=== PATIENT | male | born 1965 | race African-American/Black ===

== ENCOUNTER 2016-08-29 15:41 | Inpatient (IN) | payer MEDICARE, OTHER ==
--- NOTE | ~2016-08-29 | HP ---
History And Physical [place] [address] [facility] [place]. [address] NAME: YOU CROCKER : 63 STATUS : ADM IN PAT#: [id number] AGE: 50 ADM/REG DATE : 08/29/16 MR#: [id number] REPORT SERV DATE: 08/29/16 DICTATED BY: KATHIE LUGO DATE: 08/29/16 REPORT STATUS : Draft TRANSCRIBED BY: MODJeancarlos DATE: 08/29/16 DATE OF ADMISSION: 08/29/2016 REASON FOR ADMISSION: Acute kidney injury. CHIEF COMPLAINT: He had some abnormal labs and was told to come to the ER. HISTORY OF PRESENT ILLNESS: A 50-year-old male with a history of mental retardation, bipolar disorder, fragile X syndrome, is a resident of [facility]. He went in for routine lab work to his primary care office, Ms. Ginette Kruger, and lab work came back today as having an elevated creatinine. He was told to come to the ER for further evaluation. The patient is unable to provide history given his moderate mental retardation. He is able to follow some commands and speaks very simple sentences. He is accompanied by a sitter at [facility], who says that he has not had any significant behavioral changes other than just a one time episode of urinating in the van, which is unusual for him. They have been trying to encourage him to take more fluid, as they felt that he was getting a little bit dehydrated given the wrinkles on his fingertips, but otherwise, the sitter did not note any significant decrease in his p.o. intake. He has not had any significant medication changes other than just the addition of griseofulvin for a rash on his body. The patient's sitter says that he has had no issues with kidney issues in the past. Otherwise, if the patient has a problem, he usually points to an area of his body where he is hurting. He is able to ambulate and eat on his own. Again, the sitter has not noted any behavioral or anything abnormal from his routine behavior. REVIEW OF SYSTEMS: No fever, chills, nausea, vomiting, diarrhea, chest pain, or shortness of breath. PAST MEDICAL HISTORY: Mental retardation from fragile X syndrome, bipolar disorder, reflux with esophagitis diagnosed by Dr. Irving in 2013, hypertension, chronic constipation, chronic thrombocytopenia, history of right septic elbow joint. PAST SURGICAL HISTORY: Right elbow surgery. ALLERGIES: THORAZINE. SOCIAL HISTORY: Lives at [facility]. Family in [place], [place]. No tobacco, alcohol, or drug abuse. He has a conservator, who is Hawa Cyr, who is a revenue accountant. FAMILY HISTORY: Brother with mental retardation. MEDICATIONS: Include Caltrate 600 mg twice a day, vitamin D 800 units every morning, Dexilant 30 mg every morning, Depakote ER 1000 mg at bedtime, Colace 100 mg three times a day, Anamika, fluphenazine 10 mg twice a day, Flonase, griseofulvin, ketoconazole, mineral oil, MiraLAX, propranolol 10 mg three times a day, Metamucil, Seroquel 200 mg at bedtime and 400 mg twice a day, trazodone 100 mg at bedtime, Lamisil, olive oil lotion, aloe, Mucinex. History And Physical [address] [address] NAME: YOU CROCKER : 63 STATUS : ADM IN [facility]#: [id number] AGE: 50 ADM/REG DATE : 08/29/16 MR#: [id number] REPORT SERV DATE: 08/29/16 DICTATED BY: KATHIE LUGO DATE: 08/29/16 REPORT STATUS : Draft TRANSCRIBED BY: TREVOR DATE: 08/29/16 PHYSICAL EXAMINATION: VITAL SIGNS: Blood pressure is 141/97, temperature is afebrile, pulse is 56, respirations 16. GENERAL: He is in no acute distress. Alert and oriented. He is able to follow simple commands. He is pleasant. No behavioral changes. HEENT: Normocephalic and atraumatic head. Extraocular muscles intact. Oropharynx clear. NECK: Supple. No JVD. CARDIAC: Regular rhythm. No murmurs, rubs, or gallops. PULMONARY: Clear to auscultation bilaterally. ABDOMEN: Soft, nontender. Positive bowel sounds, obese. EXTREMITIES: Show no clubbing, cyanosis, or edema. NEUROLOGIC: No focal deficits. SKIN: Warm and dry. PSYCHIATRIC: The patient is cooperative. Mood is appropriate. LABORATORY DATA: Show a white blood cell count of 6.2, hemoglobin 12.3, platelet count of 131, BUN 33, creatinine 3, calcium 12.2, albumin 3. UA is unremarkable. IMPRESSION: 1. Acute kidney injury. 2. Hypercalcemia. 3. Bipolar. 4. Mental retardation. 5. Chronic thrombocytopenia. 6. Fragile X syndrome. PLAN: Plan is to do IV fluids. Obtain a complete abdominal ultrasound study looking at the kidneys, bladder, liver, and spleen. Obtain an intact parathyroid hormone, a phosphate level, vitamin D levels, SPEP, and UPEP for concern for possible multiple myeloma. We will hold off on a Reeves unless we show demonstration of obstruction, as he has tendency to have some behavioral changes with Reeves catheters and IVs. We will also check a Depakote level, check an ionized calcium level, hopefully get the patient back to [facility] in two days if his creatinine levels improve. FLACA/TREVOR Kathie Lugo MD / [id number] CC: MD GINETTE Pitts
--- NOTE | ~2016-08-29 | DS ---
Discharge Summary [place] [address] [place]. [address] NAME: YOU CROCKER : 63 STATUS : DIS IN PAT#: [id number] AGE: 50 ADM/REG DATE : 08/29/16 MR#: [id number] REPORT SERV DATE: 09/07/16 DICTATED BY: NERY LARA DATE: 09/06/16 REPORT STATUS : Draft TRANSCRIBED BY: MODJeancarlos DATE: 09/06/16 ADMISSION DATE: 08/29/2016 DISCHARGE DATE: 09/06/2016 DIAGNOSES: 1. Acute kidney injury. 2. Hypercalcemia. 3. History of fragile X syndrome. 4. Pulmonary nodule. CONSULTANTS: Nephrology with Dr. Brannon. FOLLOWUP: The patient should follow up with Nephrology in two to three weeks for creatinine and calcium level and also follow up with Pulmonary with Dr. in two to three weeks for pulmonary nodule and follow with the primary care physician in one week for repeat calcium level. HOSPITALIST: Dr. Louis Lugo and Dr. Lara. CONSULTANTS: Nephrology, Dr. Brannon. IMAGING: CT of the chest, abdomen, and pelvis without contrast with mild interstitial edema and cardiomegaly with bilateral upper lobe 0.6 cm pulmonary nodules one in each upper lobe and 0.4 cm lingular and lateral right lower lobe pulmonary nodules. One year follow up chest CT recommended with mild mediastinal adenopathy. No evidence of intraabdominal or pelvic malignancy on a noncontrast CT. There is a small fat containing umbilical and right inguinal hernia. Asymmetric sclerosis of the left upper sacrum and SI joints suggesting mild sacroiliitis. HOSPITAL COURSE: Please see H and P dictated by Dr. Lugo and interim summary from Dr. Lugo. This is a 50 years old male with a past medical history of fragile X syndrome and history of chronic thrombocytopenia, currently resides at [facility] with daily sitters and has a conservator, . Hawa Cyr. The patient was admitted for acute kidney injury with lab work by his primary care, Ginette Kruger. [facility] also felt the patient was getting more dehydrated while at home. He was admitted to the Hospitalist Service, found to have a BUN and creatinine of 33 and 3 respectively as well as hypercalcemia with a calcium of 12.2. He was initiated on IV fluids with a Nephrology consultation. PTH, vitamin D, SPEP and UPEP also was ordered. The patient had within normal limits PTH as well as vitamin D levels. His SPEP and UPEP were unremarkable. He was continued on IV fluids with improvement of his hypercalcemia. Still had a mild elevation of the ionized calcium at the time of discharge, but approved for discharge by Nephrology to follow up as an outpatient. The patient was on calcium supplements as an outpatient which were discontinued on discharge and should not be restarted. However, the patient did have incidental finding of some bilateral pulmonary nodules, suspected could be possible malignancy or associated cause of his hypercalcemia. Therefore, the patient was referred for an outpatient followup with a sales representative facility services and may require bronchoscopy, this has been updated and informed with his conservator, Ms. Shaikh Discharge Summary [address] [address] NAME: YOU CROCKER : 63 STATUS : DIS IN PAT#: [id number] AGE: 50 ADM/REG DATE : 08/29/16 MR#: [id number] REPORT SERV DATE: 09/07/16 DICTATED BY: NERY LARA DATE: 09/06/16 REPORT STATUS : Draft TRANSCRIBED BY: TREVOR DATE: 09/06/16 Klarissa, of the importance of pulmonary nodules being followed by sales representative facility services in case of association with the hypercalcemia. The patient was approved for discharge back to [facility] with followup by Nephrology and clinically and hemodynamically stable. His BUN and creatinine at the time of discharge was 22 and 1.97 with ionized calcium at 5 but approved for discharge by Nephrology. [facility]/MODL Nery Lara M.D. / [id number] CC: Jacey Delacruz M.D. Stuart G Ginther, M.D.
--- NOTE | ~2016-08-29 | IDS ---
Interim Discharge Summary [facility] [address] [place]. [address] NAME: YOU CROCKER : 63 STATUS : ADM IN PAT#: [id number] AGE: 50 ADM/REG DATE : 08/29/16 MR#: [id number] REPORT SERV DATE: 09/03/16 DICTATED BY: KATHIE LUGO DATE: 09/03/16 REPORT STATUS : Draft TRANSCRIBED BY: MODL DATE: 09/03/16 ADMISSION DATE: 08/29/2016 DISCHARGE DATE: REASON FOR ADMISSION: Acute kidney injury. HISTORY OF PRESENT ILLNESS: Please refer to my H and P dated 08/29/2016 for complete details on the patient's admission. In brief, the patient was told by his PCP to present to the ER because of his acute kidney injury. HOSPITAL COURSE: Several issues were addressed. 1. SINAN: The patient has a known creatinine level of 1 dated on 06/22/2016, from routine blood work. He presented to the hospital with a creatinine of around 3. He was started on IV fluids. UA was unremarkable. On the second day of admission, his creatinine had trended down, but on the 3rd day, it did not improve as anticipated and Nephrology was consulted to help. His creatinine to date is now 2.26, still not at his baseline. Complete abdominal ultrasound on 08/30/2016, showed gallbladder polyps and limited visualization of the pancreas, possibly increased echogenicity of the right parenchyma, which could indicate diffuse renal disease. Nephrology feels that his SINAN is secondary to hypercalcemia causing diabetes insipidus. Nephrology continues to follow along the patient, is involved with his care. 2. Hypercalcemia: The patient presented with a calcium level of around 12, was unknown if this was hypercalcemia malignancy. PTH was ordered, which was slightly on the low side. His vitamin D levels were normal but on the low end of normal. UPEP and SPEP were unremarkable. Nephrology recommended getting a surveillance CT scan of the chest, abdomen, and pelvis. Unfortunately, could not do IV contrast given his creatinine. The CT scan of his chest had revealed some bilateral upper lobe pulmonary nodules, RADS category 2. Recommended one year followup along with some mild mediastinal adenopathy. Unclear if the patient has hypercalcemia malignancy, but there is no obvious cancer etiology. Nephrology feels that his hypercalcemia could be due to his supplementation including Caltrate plus vitamin D, along with additional vitamin D. His Caltrate and vitamin D have been held since admission, and we have been watching his ionized calcium, which seems stable at about 5.2. 3. Mental retardation: This has been stable. The patient follows most commands. He does not demonstrate any behavioral changes. 4. Fragile X syndrome. 5. Bipolar disorder. He has been stable on his medications from [facility]. DISPOSITION: Pending final recommendations from Nephrology but anticipate discharging back to [facility] once Nephrology signs off. Further care per Dr. Trevino's who will assume care of this patient on 09/04/2016. FLACA/TREVOR Interim Discharge Summary [address] [place]. [address] NAME: YOU CROCKER : 63 STATUS : ADM IN [facility]#: [id number] AGE: 50 ADM/REG DATE : 08/29/16 MR#: [id number] REPORT SERV DATE: 09/03/16 DICTATED BY: KATHIE LUGO DATE: 09/03/16 REPORT STATUS : Draft TRANSCRIBED BY: TREVOR DATE: 09/03/16 Kathie Lugo MD / [id number] CC: MD MAYNOR Pitts TINA
--- NOTE | ~2016-08-29 | CN ---
Consultation Report [facility] [address] [place]. [address] NAME: YOU WALTERS : 63 STATUS : ADM IN [facility]#: [id number] AGE: 50 ADM/REG DATE : 08/29/16 MR#: [id number] REPORT SERV DATE: 08/31/16 DICTATED BY: DATE: REPORT STATUS : Draft TRANSCRIBED BY: MODJeancarlos DATE: 08/31/16 CONSULTATION DATE OF CONSULTATION: REASON FOR CONSULTATION: Acute kidney injury. HISTORY OF PRESENT ILLNESS: Mr. Walters is a 50-year-old black male with mental retardation. He lives at [facility], and he has mental retardation, bipolar disorder, hypertension. No history of kidney disease in the past. I spoke to his nurse practitioner there, and he actually had a baseline creatinine of around 1, that was last value in 06/2016. He had labs checked after he had some changes in his behavior. He had urinary incontinence which was very unusual for the patient and the case management social worker said they also noticed that his skin had become very dry, so they were encouraging increased p.o. intake. He had been sleeping more lately, which was unusual. He does not usually nap during the day, but had been doing so. He has had no nausea, vomiting, or diarrhea that they were aware of. No urinary difficulties other than the incontinence that they were aware of. On his arrival, his creatinine was 3, and today his creatinine is 2.7 and we were asked to see the patient. Also, his calcium was 12.2 on arrival. It is down to 9.1 today. He has a low albumin at 1.8 on the value of today as well. The nurse practitioner at [facility] denies any known history of cancer. In regard to his blood pressure, he has had some low blood pressures since he has been in the hospital. Yesterday, he had blood pressures down in the 90s/60s. PAST MEDICAL HISTORY: Mental retardation, bipolar disorder, reflux, hypertension, chronic constipation, thrombocytopenia. ALLERGIES: THORAZINE. SOCIAL HISTORY: Lives at [facility]. No tobacco or alcohol. FAMILY MEDICAL HISTORY: Unknown. MEDICATIONS: It is noted that the patient was on vitamin D and calcium supplement over at [facility]. Medications at this time: Desyrel, Seroquel, Inderal, Protonix, Claritin, MiraLAX, Flonase, Prolixin, Lovenox, Colace, Depakote and Lotrimin. REVIEW OF SYSTEMS: Given the patient's mental retardation, review of systems was minimal, but did discuss symptoms with a nurse practitioner and case management social worker over at [facility]. PHYSICAL EXAMINATION: Consultation Report [place] [address] [place]. [address] NAME: YOU WALTERS : 63 STATUS : ADM IN [facility]#: [id number] AGE: 50 ADM/REG DATE : 08/29/16 MR#: [id number] REPORT SERV DATE: 08/31/16 DICTATED BY: DATE: REPORT STATUS : Draft TRANSCRIBED BY: MODL DATE: 08/31/16 VITAL SIGNS: Temp 97.9, blood pressure 111/70, pulse 82, respiratory rate 16, O2 saturation is 95%. GENERAL: This is a pleasant, cooperative, white male. He is awake, alert, answers questions yes and no, and is cooperative with physical exam. HEENT: Normocephalic and atraumatic. Oral mucosa is moist. NECK: Supple. RESPIRATIONS: Even and unlabored breath sounds. Clear to auscultation. HEART: Rate is regular. No murmur, rub, or gallop. ABDOMEN: Soft and nontender. No CVA tenderness. BACK: Within normal limits. EXTREMITIES: No edema, cyanosis, or clubbing. SKIN: No unusual rashes or skin lesions. NEURO: As above, he cooperated with the exam, and he does move about in bed, but limited exam given his mental retardation. PERTINENT LABS AND X-RAYS: SPEP, negative. Urine protein electrophoresis, negative. Sodium 140, potassium 4, chloride 112, CO2 of 22, BUN of 29, creatinine of 2.7, calcium 9.1, magnesium of 2.2, albumin of 1.8, and phosphorus of 30.2. WBCs 4.7, H and H 11 and 35, platelets 129,000. He had a vitamin D level of 26, PTH of 8. IMPRESSION: 1. Acute kidney injury. 2. Hypercalcemia. 3. Urinary incontinence. 4. Mental retardation. PLAN/RECOMMENDATIONS: Acute kidney injury in the setting of hypercalcemia, suspect he has a diabetes insipidus related to the hypercalcemia. We will restart IV fluids. Also, given hypercalcemia, needs further workup for occult malignancy. We will check CT of the abdomen and chest. Vitamin D and calcium supplementation has been held. We will follow labs and I's and O's. We will follow along with you. Thank you for the consultation. FARHAD EVA Farley / [id number] CC: Louis Lugo MD Consultation Report [address] [address] NAME: YOU WALTERS : 63 STATUS : ADM IN [facility]#: [id number] AGE: 50 ADM/REG DATE : 08/29/16 MR#: [id number] REPORT SERV DATE: 08/31/16 DICTATED BY: DATE: REPORT STATUS : Draft TRANSCRIBED BY: TREVOR DATE: 08/31/16 Ginette Kruger
[2016-08-29 15:29] LABS: BASOPHILS 0.3 %; BASOPHILS ABSOLUTE 0.02 10/3/uL (0.0-0.16); EOSINOPHILS 3.6 %; EOSINOPHILS ABSOLUTE 0.22 10/3/uL (0.0-0.53); ER CBC TAT 0 Hrs 07 Mins; HEMOGLOBIN 12.3 g/dL (13.6-17.8); IMMATURE GRANULOCYTES 0.3 %; IMMATURE GRANULOCYTES ABSOLUTE 0.02 10/3/uL (0.0-0.11); LYMPHOCYTES ABSOLUTE 0.92 10/3/uL (0.67-4.30); MEAN CORPUS HGB CONC 33.3 g/dL (32.0-36.0); MEAN PLATELET VOLUME 9.3 fL (9.2-13.0); MONOCYTES ABSOLUTE 1.23 10/3/uL (0.21-1.20); NEUTROPHILS 60.8 %; NEUTROPHILS ABSOLUTE 3.74 10/3/uL (2.02-8.40); PLATELET COUNT 131 10/3/uL (150-400); RBC DISTRIBUTION WIDTH 13.6 % (12.0-16.0); RED CELL COUNT 4.39 10/6/uL (4.7-6.1); WHITE BLOOD CELLS 6.2 10/3/uL (4.5-10.5)
[2016-08-29 15:31] LABS: HEMATOCRIT 36.9 % (40.0-51.0); MEAN CORPUSCULAR VOLUME 84.1 fL (80-100)
[~2016-08-29 15:41] MED LIST: ALLEGRA180 PO; ALOE VERA TOP; DEPAKOTEER PO; DSS PO; EUCERIN CREAM TOP; EUCERIN TOP; FLUPHENAZINE10 MG OR; KAPIDEX30 MG PO; LISTERINE; LITHIUM CARB600 MG PO; LOTRIMIN AF21 EX; MAGNESIUM CITRATE PO; METAMUCIL CAN7 OZ PO; MIRALAXPKT PO; MOISTURE TOP; NASONEX NAS; PRIN10 PO; PROLIXIN 1 MG TA1 MG OR; SEROQUEL300 MG PO; SEROQUEL400 MG PO; TRAZ100 PO; TRAZODONE150 MG PO; VITAMIN D400 UNI1 PO; ZYP5 PO
[2016-08-29 15:45] LABS: CHLORIDE, SERUM 107 MMOL/L (96-112); CO2 (CARBON DIOXIDE) 26 MMOL/L (24-34); GLUCOSE, SERUM 95 MG/DL (60-99); SGPT(ALT) 22 U/L (5-65); SODIUM, SERUM 143 MMOL/L (135-148); TOTAL BILIRUBIN 0.4 MG/DL (0-1.2); TOTAL PROTEIN 6.2 G/DL (6.0-8.5)
[2016-08-29 15:47] LABS: A/G RATIO 0.9 (0.7-1.9); ALKALINE PHOSPHATASE 54 U/L (45-117); BUN (BLOOD UREA NITROGEN) 33 MG/DL (6-23); CALCIUM, SERUM 12.2 MG/DL (8.5-10.4); CREATININE 3.02 MG/DL (0.70-1.30); GFR AFRICAN AMERICAN 26 ML/MIN (>=60); GFR NON AFRICAN AMERICAN 23 ML/MIN (>=60); GLOBULIN 3.2 G/DL (2.5-4.1); POTASSIUM, SERUM 3.9 MMOL/L (3.5-5.3); SGOT(AST) 19 U/L (5-40)
[2016-08-29 16:07] LABS: ASCORBIC ACID (UR NOT ORDER) NEG (NEG); BILIRUBIN, URINE NEGATIVE (NEG); ER URINALYSIS TAT 0 Hrs 09 Mins; KETONE, URINE NEGATIVE (NEG); LEUKOCYTE ESTERASE(NOT OR NEG (NEG); NITRITE (URINE) NEG (NEG); WBC (NOT ORDERED) (RFLEX) < 1 (0-5)
[2016-08-29] MEDS ORDERED: DSS PO (16:09)
[2016-08-29] MEDS ORDERED: CALTRA600D PO (16:09)
[2016-08-29] MEDS ORDERED: VITAMIN D400 UNI1 PO (16:10)
[2016-08-29] MEDS ORDERED: MIRALAX POWDER1 PKT PO (16:10)
[2016-08-29] MEDS ORDERED: METAMUCIL CAN7 OZ PO (16:11)
[2016-08-29] MEDS ORDERED: LOTRIMIN 2% TOP (16:13)
[2016-08-29] MEDS ORDERED: KAPIDEX30 MG PO (16:14)
[2016-08-29] MEDS ORDERED: ALLEGRA180 PO (16:14)
[2016-08-29] MEDS ORDERED: LAMISIL AT TOP (16:15)
[2016-08-29] MEDS ORDERED: SEROQUEL200 MG PO (16:16)
[2016-08-29] MEDS ORDERED: DEPAKOTEER PO (16:17)
[2016-08-29] MEDS ORDERED: FLUPHENAZINE10 MG PO (16:18)
[2016-08-29] MEDS ORDERED: TRAZ100 PO (16:19)
[2016-08-29] MEDS ORDERED: SEROQUEL400 MG PO (16:20)
[2016-08-29] MEDS ORDERED: I10 PO (16:22)
[2016-08-29] MEDS ORDERED: OLIVE OIL TOP (16:22)
[2016-08-29] MEDS ORDERED: [UNRECOGNIZED DRUG - OTHER] TOP (16:24)
[2016-08-29] MEDS ORDERED: ALOE VERA TOP (16:24)
[2016-08-29] MEDS ORDERED: MUCINEX DM PO (16:26)
[2016-08-29] MEDS ORDERED: GRIS-PEG250 MG PO (16:27)
[2016-08-29] MEDS ORDERED: HYDROCERIN TOP (16:29)
[2016-08-29] MEDS ORDERED: NIZORALCRM TOP (16:29)
[2016-08-29] MEDS ORDERED: FLONASE NAS (16:30)
[2016-08-29 20:57] LABS: PARTIAL THROMBO TIME 29.8 SEC (22.5-37.2); PROTIME (NOT ORD) 13.5 SEC (12.0-14.5)
[2016-08-29 21:25] LABS: T PROTEIN (ELECT)(NOT OR 5.9 G/DL (6.0-8.5)
[2016-08-29 21:30] LABS: CREATININE, URINE 48.1 MG/DL
[2016-08-29 21:37] LABS: INTACT PTH (ICMA) 8.7 PG/ML (10.0-65.0)
[2016-08-29 22:17] LABS: DEPAKENE (VALPROIC ACID) 62.3 MCG/ML (50.0-100.0); PHOSPHORUS, SERUM 3.5 MG/DL (2.5-4.5)
[2016-08-30 07:18] LABS: BASOPHILS 0.2 %; BASOPHILS ABSOLUTE 0.01 10/3/uL (0.0-0.16); EOSINOPHILS 3.8 %; EOSINOPHILS ABSOLUTE 0.16 10/3/uL (0.0-0.53); HEMOGLOBIN 11.9 g/dL (13.6-17.8); IMMATURE GRANULOCYTES 0.2 %; IMMATURE GRANULOCYTES ABSOLUTE 0.01 10/3/uL (0.0-0.11); LYMPHOCYTES 15.9 %; LYMPHOCYTES ABSOLUTE 0.67 10/3/uL (0.67-4.30); MEAN CORPUS HGB CONC 33.1 g/dL (32.0-36.0); MEAN CORPUSCULAR HEMOGLOB 27.9 pg (26.0-34.0); MEAN CORPUSCULAR VOLUME 84.3 fL (80-100); MEAN PLATELET VOLUME 8.6 fL (9.2-13.0); MONOCYTES 18.1 %; MONOCYTES ABSOLUTE 0.76 10/3/uL (0.21-1.20); NEUTROPHILS 61.8 %; PLATELET COUNT 110 10/3/uL (150-400); RBC DISTRIBUTION WIDTH 13.7 % (12.0-16.0); RED CELL COUNT 4.27 10/6/uL (4.7-6.1); WHITE BLOOD CELLS 4.2 10/3/uL (4.5-10.5)
[2016-08-30 07:20] LABS: MANUAL DIFF NO %
[2016-08-30 07:27] LABS: ALBUMIN 2.6 G/DL (3.5-5.0); BUN (BLOOD UREA NITROGEN) 31 MG/DL (6-23); CHLORIDE, SERUM 111 MMOL/L (96-112); CO2 (CARBON DIOXIDE) 26 MMOL/L (24-34); CREATININE 2.69 MG/DL (0.70-1.30); GFR AFRICAN AMERICAN 30 ML/MIN (>=60); GFR NON AFRICAN AMERICAN 26 ML/MIN (>=60); GLUCOSE, SERUM 82 MG/DL (60-99); PHOSPHORUS, SERUM 3.5 MG/DL (2.5-4.5); POTASSIUM, SERUM 3.8 MMOL/L (3.5-5.3); SODIUM, SERUM 147 MMOL/L (135-148)
[2016-08-30 11:09] LABS: A/G 1.62 RATIO (0.9-2.10); ALB RELATIVE % 61.8 % (60.0-89.0); ALBUMIN (ELECTRO) 3.65 GM/DL (3.2-5.5); ALPHA 1 (ELECTRO) 0.22 GM/DL (0.1-0.4); ALPHA 1 RELAT % (NOT ORD) 3.8 % (1.0-4.0); ALPHA 2 (ELECTRO) 0.68 GM/DL (0.5-1.10); ALPHA 2 RELAT % 11.6 % (4.5-26.0); BETA GLOBULIN (SPE) 0.64 GM/DL (0.60-1.30); BETA RELATIVE % 10.9 % (9.0-22.0); GAMMA RELAT % 11.9 % (6.0-22.0)
[2016-08-31 05:45] LABS: HEMOGLOBIN 11.7 g/dL (13.6-17.8); MEAN CORPUS HGB CONC 33.4 g/dL (32.0-36.0); MEAN CORPUSCULAR HEMOGLOB 28.3 pg (26.0-34.0); MEAN CORPUSCULAR VOLUME 84.7 fL (80-100); MEAN PLATELET VOLUME 9.8 fL (9.2-13.0); PLATELET COUNT 129 10/3/uL (150-400); RBC DISTRIBUTION WIDTH 13.6 % (12.0-16.0); RED CELL COUNT 4.13 10/6/uL (4.7-6.1); WHITE BLOOD CELLS 4.7 10/3/uL (4.5-10.5)
[2016-08-31 05:46] LABS: MANUAL DIFF YES %
[2016-08-31 06:43] LABS: BASOPHILS 1 %; BASOPHILS ABSOLUTE (CALC) 0.05 10/3/uL (0.0-0.16); EOSINOPHILS 5 %; EOSINOPHILS ABSOLUTE (CALC) 0.24 10/3/uL (0.0-0.53); LYMPHOCYTES 30 %; LYMPHOCYTES ABSOLUTE (CALC) 1.41 10/3/uL (0.67-4.30); MONOCYTES 8 %; MONOCYTES ABSOLUTE (CALC) 0.38 10/3/uL (0.21-1.20); NEUTROPHILS ABSOLUTE (CALC) 2.63 10/3/uL (2.02-8.40); SEGMENTED NEUTROPHIL (0) 56 %; TOTAL NUCLEATED CELLS 100
[2016-08-31 06:44] LABS: PLATELET ESTIMATE DEC (ADEQUATE); RBC MORPHOLOGY NORM (NORMAL)
[2016-08-31 08:46] LABS: BUN (BLOOD UREA NITROGEN) 29 MG/DL (6-23); CALCIUM, SERUM 9.1 MG/DL (8.5-10.4); CHLORIDE, SERUM 112 MMOL/L (96-112); CO2 (CARBON DIOXIDE) 22 MMOL/L (24-34); CREATININE 2.73 MG/DL (0.70-1.30); GFR AFRICAN AMERICAN 30 ML/MIN (>=60); GFR NON AFRICAN AMERICAN 26 ML/MIN (>=60); PHOSPHORUS, SERUM 3.2 MG/DL (2.5-4.5)
[2016-08-31 08:50] LABS: GLUCOSE, SERUM 65 MG/DL (60-99); SODIUM, SERUM 140 MMOL/L (135-148)
[2016-08-31 08:51] LABS: ALBUMIN 1.8 G/DL (3.5-5.0)
[2016-08-31 10:14] LABS: ALBUMIN RELAT % 23.7 %
[2016-09-01 05:42] LABS: BASOPHILS 0.3 %; BASOPHILS ABSOLUTE 0.01 10/3/uL (0.0-0.16); EOSINOPHILS ABSOLUTE 0.12 10/3/uL (0.0-0.53); HEMATOCRIT 35.2 % (40.0-51.0); HEMOGLOBIN 11.7 g/dL (13.6-17.8); IMMATURE GRANULOCYTES 0.3 %; IMMATURE GRANULOCYTES ABSOLUTE 0.01 10/3/uL (0.0-0.11); LYMPHOCYTES 24.8 %; LYMPHOCYTES ABSOLUTE 0.99 10/3/uL (0.67-4.30); MEAN CORPUS HGB CONC 33.2 g/dL (32.0-36.0); MEAN CORPUSCULAR HEMOGLOB 27.9 pg (26.0-34.0); MEAN CORPUSCULAR VOLUME 83.8 fL (80-100); MEAN PLATELET VOLUME 9.3 fL (9.2-13.0); MONOCYTES 13.8 %; MONOCYTES ABSOLUTE 0.55 10/3/uL (0.21-1.20); NEUTROPHILS 57.8 %; NEUTROPHILS ABSOLUTE 2.31 10/3/uL (2.02-8.40); PLATELET COUNT 126 10/3/uL (150-400); RBC DISTRIBUTION WIDTH 13.4 % (12.0-16.0)
[2016-09-01 05:43] LABS: MANUAL DIFF NO %
[2016-09-01 05:56] LABS: BUN (BLOOD UREA NITROGEN) 28 MG/DL (6-23); CALCIUM, SERUM 8.7 MG/DL (8.5-10.4); CHLORIDE, SERUM 111 MMOL/L (96-112); CO2 (CARBON DIOXIDE) 24 MMOL/L (24-34); CREATININE 2.68 MG/DL (0.70-1.30); GFR AFRICAN AMERICAN 31 ML/MIN (>=60); GFR NON AFRICAN AMERICAN 26 ML/MIN (>=60); GLUCOSE, SERUM 71 MG/DL (60-99); PHOSPHORUS, SERUM 3.6 MG/DL (2.5-4.5); POTASSIUM, SERUM 3.6 MMOL/L (3.5-5.3); SODIUM, SERUM 146 MMOL/L (135-148)
[2016-09-01 05:59] LABS: ALBUMIN 2.6 G/DL (3.5-5.0)
[2016-09-02 05:42] LABS: BASOPHILS 0.2 %; BASOPHILS ABSOLUTE 0.01 10/3/uL (0.0-0.16); EOSINOPHILS 3.9 %; EOSINOPHILS ABSOLUTE 0.16 10/3/uL (0.0-0.53); HEMATOCRIT 35.8 % (40.0-51.0); HEMOGLOBIN 11.9 g/dL (13.6-17.8); IMMATURE GRANULOCYTES 0.5 %; IMMATURE GRANULOCYTES ABSOLUTE 0.02 10/3/uL (0.0-0.11); LYMPHOCYTES 15.9 %; LYMPHOCYTES ABSOLUTE 0.65 10/3/uL (0.67-4.30); MEAN CORPUS HGB CONC 33.2 g/dL (32.0-36.0); MEAN CORPUSCULAR HEMOGLOB 27.6 pg (26.0-34.0); MEAN CORPUSCULAR VOLUME 83.1 fL (80-100); MEAN PLATELET VOLUME 8.9 fL (9.2-13.0); MONOCYTES 17.6 %; MONOCYTES ABSOLUTE 0.72 10/3/uL (0.21-1.20); NEUTROPHILS 61.9 %; NEUTROPHILS ABSOLUTE 2.54 10/3/uL (2.02-8.40); PLATELET COUNT 127 10/3/uL (150-400); RBC DISTRIBUTION WIDTH 13.6 % (12.0-16.0); RED CELL COUNT 4.31 10/6/uL (4.7-6.1); WHITE BLOOD CELLS 4.1 10/3/uL (4.5-10.5)
[2016-09-02 05:50] LABS: ALBUMIN 2.7 G/DL (3.5-5.0); CALCIUM, SERUM 9.2 MG/DL (8.5-10.4); CHLORIDE, SERUM 112 MMOL/L (96-112); CO2 (CARBON DIOXIDE) 25 MMOL/L (24-34); CREATININE 2.27 MG/DL (0.70-1.30); GFR AFRICAN AMERICAN 37 ML/MIN (>=60); GFR NON AFRICAN AMERICAN 32 ML/MIN (>=60); GLUCOSE, SERUM 79 MG/DL (60-99); PHOSPHORUS, SERUM 3.4 MG/DL (2.5-4.5); POTASSIUM, SERUM 3.7 MMOL/L (3.5-5.3); SODIUM, SERUM 147 MMOL/L (135-148)
[2016-09-02 05:52] LABS: BUN (BLOOD UREA NITROGEN) 23 MG/DL (6-23)
[2016-09-02 05:56] LABS: MANUAL DIFF NO %
[2016-09-03 06:15] LABS: BASOPHILS 0.2 %; BASOPHILS ABSOLUTE 0.01 10/3/uL (0.0-0.16); EOSINOPHILS 3.5 %; EOSINOPHILS ABSOLUTE 0.16 10/3/uL (0.0-0.53); HEMATOCRIT 38.8 % (40.0-51.0); HEMOGLOBIN 13.3 g/dL (13.6-17.8); IMMATURE GRANULOCYTES 0.4 %; IMMATURE GRANULOCYTES ABSOLUTE 0.02 10/3/uL (0.0-0.11); LYMPHOCYTES 21.2 %; LYMPHOCYTES ABSOLUTE 0.97 10/3/uL (0.67-4.30); MEAN CORPUS HGB CONC 34.3 g/dL (32.0-36.0); MEAN CORPUSCULAR HEMOGLOB 28.2 pg (26.0-34.0); MEAN CORPUSCULAR VOLUME 82.4 fL (80-100); MEAN PLATELET VOLUME 8.9 fL (9.2-13.0); MONOCYTES 17.3 %; MONOCYTES ABSOLUTE 0.79 10/3/uL (0.21-1.20); NEUTROPHILS 57.4 %; NEUTROPHILS ABSOLUTE 2.62 10/3/uL (2.02-8.40); PLATELET COUNT 151 10/3/uL (150-400); RBC DISTRIBUTION WIDTH 13.5 % (12.0-16.0); RED CELL COUNT 4.71 10/6/uL (4.7-6.1); WHITE BLOOD CELLS 4.6 10/3/uL (4.5-10.5)
[2016-09-03 06:17] LABS: MANUAL DIFF NO %
[2016-09-03 06:34] LABS: CALCIUM, SERUM 9.9 MG/DL (8.5-10.4); CHLORIDE, SERUM 105 MMOL/L (96-112); CO2 (CARBON DIOXIDE) 28 MMOL/L (24-34); CREATININE 2.28 MG/DL (0.70-1.30); GFR AFRICAN AMERICAN 37 ML/MIN (>=60); GFR NON AFRICAN AMERICAN 32 ML/MIN (>=60); GLUCOSE, SERUM 82 MG/DL (60-99); POTASSIUM, SERUM 3.4 MMOL/L (3.5-5.3); SODIUM, SERUM 141 MMOL/L (135-148)
[2016-09-03 06:36] LABS: BUN (BLOOD UREA NITROGEN) 27 MG/DL (6-23)
[2016-09-04 06:44] LABS: BASOPHILS 0.2 %; BASOPHILS ABSOLUTE 0.01 10/3/uL (0.0-0.16); EOSINOPHILS ABSOLUTE 0.14 10/3/uL (0.0-0.53); HEMATOCRIT 39.3 % (40.0-51.0); HEMOGLOBIN 13.5 g/dL (13.6-17.8); IMMATURE GRANULOCYTES 0.2 %; IMMATURE GRANULOCYTES ABSOLUTE 0.01 10/3/uL (0.0-0.11); LYMPHOCYTES 22.5 %; LYMPHOCYTES ABSOLUTE 1.05 10/3/uL (0.67-4.30); MEAN CORPUS HGB CONC 34.4 g/dL (32.0-36.0); MEAN CORPUSCULAR HEMOGLOB 28.3 pg (26.0-34.0); MEAN CORPUSCULAR VOLUME 82.4 fL (80-100); MEAN PLATELET VOLUME 9.1 fL (9.2-13.0); MONOCYTES 17.6 %; MONOCYTES ABSOLUTE 0.82 10/3/uL (0.21-1.20); NEUTROPHILS 56.5 %; NEUTROPHILS ABSOLUTE 2.64 10/3/uL (2.02-8.40); PLATELET COUNT 149 10/3/uL (150-400); RBC DISTRIBUTION WIDTH 13.6 % (12.0-16.0); RED CELL COUNT 4.77 10/6/uL (4.7-6.1); WHITE BLOOD CELLS 4.7 10/3/uL (4.5-10.5)
[2016-09-04 06:45] LABS: MANUAL DIFF NO %
[2016-09-04 06:57] LABS: ALBUMIN 2.9 G/DL (3.5-5.0); BUN (BLOOD UREA NITROGEN) 27 MG/DL (6-23); CALCIUM, SERUM 9.8 MG/DL (8.5-10.4); CHLORIDE, SERUM 103 MMOL/L (96-112); CO2 (CARBON DIOXIDE) 28 MMOL/L (24-34); CREATININE 2.49 MG/DL (0.70-1.30); GFR AFRICAN AMERICAN 33 ML/MIN (>=60); GFR NON AFRICAN AMERICAN 29 ML/MIN (>=60); GLUCOSE, SERUM 88 MG/DL (60-99); PHOSPHORUS, SERUM 3.7 MG/DL (2.5-4.5); POTASSIUM, SERUM 3.4 MMOL/L (3.5-5.3); SODIUM, SERUM 141 MMOL/L (135-148)
[2016-09-05 07:21] LABS: HEMATOCRIT 37.6 % (40.0-51.0); MEAN CORPUS HGB CONC 34.6 g/dL (32.0-36.0); MEAN CORPUSCULAR HEMOGLOB 28.7 pg (26.0-34.0); MEAN PLATELET VOLUME 8.6 fL (9.2-13.0); PLATELET COUNT 133 10/3/uL (150-400); RBC DISTRIBUTION WIDTH 13.6 % (12.0-16.0); RED CELL COUNT 4.53 10/6/uL (4.7-6.1); WHITE BLOOD CELLS 4.7 10/3/uL (4.5-10.5)
[2016-09-05 07:23] LABS: MANUAL DIFF YES %
[2016-09-05 07:33] LABS: ALBUMIN 2.8 G/DL (3.5-5.0); BUN (BLOOD UREA NITROGEN) 25 MG/DL (6-23); CALCIUM, SERUM 9.1 MG/DL (8.5-10.4); CHLORIDE, SERUM 109 MMOL/L (96-112); CO2 (CARBON DIOXIDE) 26 MMOL/L (24-34); CREATININE 2.22 MG/DL (0.70-1.30); GFR AFRICAN AMERICAN 38 ML/MIN (>=60); GFR NON AFRICAN AMERICAN 33 ML/MIN (>=60); GLUCOSE, SERUM 81 MG/DL (60-99); PHOSPHORUS, SERUM 3.1 MG/DL (2.5-4.5); POTASSIUM, SERUM 3.6 MMOL/L (3.5-5.3); SODIUM, SERUM 145 MMOL/L (135-148)
[2016-09-05 08:08] LABS: EOSINOPHILS 1 %; EOSINOPHILS ABSOLUTE (CALC) 0.05 10/3/uL (0.0-0.53); LYMPHOCYTES 11 %; LYMPHOCYTES ABSOLUTE (CALC) 0.52 10/3/uL (0.67-4.30); MONOCYTES 15 %; MONOCYTES ABSOLUTE (CALC) 0.71 10/3/uL (0.21-1.20); NEUTROPHILS ABSOLUTE (CALC) 3.43 10/3/uL (2.02-8.40); PLATELET ESTIMATE SLT DEC (ADEQUATE); RBC MORPHOLOGY NORM (NORMAL); SEGMENTED NEUTROPHIL (0) 73 %; TOTAL NUCLEATED CELLS 100
[2016-09-06 05:54] LABS: BASOPHILS 0.2 %; BASOPHILS ABSOLUTE 0.01 10/3/uL (0.0-0.16); EOSINOPHILS 3.6 %; EOSINOPHILS ABSOLUTE 0.17 10/3/uL (0.0-0.53); HEMATOCRIT 34.7 % (40.0-51.0); HEMOGLOBIN 11.8 g/dL (13.6-17.8); IMMATURE GRANULOCYTES 0.2 %; IMMATURE GRANULOCYTES ABSOLUTE 0.01 10/3/uL (0.0-0.11); LYMPHOCYTES 20.7 %; LYMPHOCYTES ABSOLUTE 0.98 10/3/uL (0.67-4.30); MEAN CORPUSCULAR HEMOGLOB 28.2 pg (26.0-34.0); MONOCYTES 16.9 %; NEUTROPHILS 58.4 %; NEUTROPHILS ABSOLUTE 2.76 10/3/uL (2.02-8.40); PLATELET COUNT 145 10/3/uL (150-400); RBC DISTRIBUTION WIDTH 13.6 % (12.0-16.0); RED CELL COUNT 4.18 10/6/uL (4.7-6.1); WHITE BLOOD CELLS 4.7 10/3/uL (4.5-10.5)
[2016-09-06 05:58] LABS: MANUAL DIFF NO %
[2016-09-06 06:07] LABS: ALBUMIN 2.5 G/DL (3.5-5.0); BUN (BLOOD UREA NITROGEN) 22 MG/DL (6-23); CALCIUM, SERUM 8.9 MG/DL (8.5-10.4); CHLORIDE, SERUM 111 MMOL/L (96-112); CO2 (CARBON DIOXIDE) 23 MMOL/L (24-34); CREATININE 1.97 MG/DL (0.70-1.30); GFR AFRICAN AMERICAN 44 ML/MIN (>=60); GFR NON AFRICAN AMERICAN 38 ML/MIN (>=60); GLUCOSE, SERUM 74 MG/DL (60-99); PHOSPHORUS, SERUM 3.2 MG/DL (2.5-4.5); POTASSIUM, SERUM 3.9 MMOL/L (3.5-5.3); SODIUM, SERUM 146 MMOL/L (135-148)
== END 2016-09-06 14:20 | disposition home or self-care (01) | DRG 640 ==
LOC: ER 15:41 → 5SO 17:30
PROVIDERS: Hospitalist; Internal Medicine
DX: E83.52 Hypercalcemia (principal); N17.0 Acute kidney failure with tubular necrosis; E86.0 Dehydration; D69.6 Thrombocytopenia, unspecified; Q99.2 Fragile X chromosome; F31.9 Bipolar disorder, unspecified; I10 Essential (primary) hypertension; K59.09 Other constipation; F79 Unspecified intellectual disabilities; R91.1 Solitary pulmonary nodule; Z79.899 Other long term (current) drug therapy; E87.6 Hypokalemia
CPT/HCPCS: 71010; 71020; 71250; 74176; 76700; 80053; 80069; 80164; 81001; 82306; 82330; 82570; 83519; 83735; 83935; 83970; 84100; 84155; 84156; 84165; 84166; 84300; 84439; 84443; 85025; 85610; 85730; 99284; A9270-GY